=== PATIENT | male | born 1955 ===

== ENCOUNTER → 2018-03-06 | Outpatient (CLI) | payer MEDICAID | LOC: WOUNDCARE 12:25 | PROVIDERS: ATTEND Surgery | DX: I70.232 Atherosclerosis of native arteries of right leg with ulceration of calf (principal); I87.331 Chronic venous hypertension (idiopathic) with ulcer and inflammation of right lower extremity; L97.212 Non-pressure chronic ulcer of right calf with fat layer exposed; L97.311 Non-pressure chronic ulcer of right ankle limited to breakdown of skin; I70.245 Atherosclerosis of native arteries of left leg with ulceration of other part of foot; I87.322 Chronic venous hypertension (idiopathic) with inflammation of left lower extremity; L97.522 Non-pressure chronic ulcer of other part of left foot with fat layer exposed; I89.0 Lymphedema, not elsewhere classified; L22 Diaper dermatitis; T65.222A Toxic effect of tobacco cigarettes, intentional self-harm, initial encounter | CPT/HCPCS: 11042; 87070; 87075; 87205 ==